=== PATIENT | male | born 1995 | race African-American/Black ===

== ENCOUNTER 2016-08-25 12:34 | Emergency (ER) | payer MEDICAID ==
[~2016-08-25] VITALS: Ht 175.3 cm; Wt 105.0 kg
[2016-08-25 13:45] VITALS: BP 136/83
[2016-08-25] MEDS ORDERED: IBUPROFEN 800MG TABLET PO ONE (13:45)
== END 2016-08-25 14:28 | disposition home or self-care (01) ==
LOC: ER 13:28
DX: S80.212A Abrasion, left knee, initial encounter (principal); Y08.89XA Assault by other specified means, initial encounter; Y93.89 Activity, other specified; Y92.89 Other specified places as the place of occurrence of the external cause; Y99.8 Other external cause status
CPT/HCPCS: 99283; L1830

== ENCOUNTER 2017-04-20 13:24 | Emergency (ER) | payer MEDICAID ==
[~2017-04-20] VITALS: Ht 175.3 cm; Wt 100.0 kg
[2017-04-20] MEDS ORDERED: FAMOTIDINE 20MG/2ML VIAL IV STA (18:10)
[2017-04-20 19:08] LABS: BASOPHILS % 0.7 % (0.0-2.0); CHLORIDE 107 mEq/L (98-107); EOSINOPHILS % 0.1 % (0.0-5.0); HEMATOCRIT. 40.4 % (42.0-52.0); HEMOGLOBIN. 13.1 g/dL (14.0-18.0); LYMPHOCYTES % 25.1 % (20.0-50.0); MEAN CORPUSCULAR HEMOGLOBIN 26.9 pg (28.0-32.0); MEAN CORPUSCULAR VOLUME 82.8 fL (80.0-94.0); MONOCYTES % 10.6 % (2.0-8.0); NEUTROPHILS % 63.5 % (40.0-76.0); PLATELET 230 x1000/uL (130-400); RED BLOOD CELL COUNT 4.88 mill/uL (4.7-6.1); RED CELL DISTRIBUTION WIDTH 13.9 % (11.6-14.6)
[2017-04-20 19:10] LABS: INR 1.1; PROTHROMBIN TIME 11.2 sec (9.4-11.6)
[2017-04-20] MEDS ORDERED: MAGNESIUM/ALUMINUM HYDROXIDE/SIMETHICONE 30ML UDC PO STA (19:22)
[2017-04-20] MEDS ORDERED: VISCOUS LIDOCAINE 2% 15 ML UDC PO STA (19:22)
[2017-04-20] MEDS ORDERED: DICYCLOMINE 10 MG/5 ML ORAL SYR PO STA (19:22)
[2017-04-20 21:28] VITALS: BP 127/80
== END 2017-04-20 21:30 | disposition home or self-care (01) ==
LOC: ER 14:52
DX: R10.13 Epigastric pain (principal); R11.10 Vomiting, unspecified; R19.5 Other fecal abnormalities
CPT/HCPCS: 36415; 80053; 83690; 85025; 85610; 99284; Z7610

== ENCOUNTER 2017-10-15 09:12 | Emergency (ER) | payer MEDICAID ==
[~2017-10-15] VITALS: Ht 175.3 cm; Wt 102.0 kg
[2017-10-15 09:30] VITALS: BP 130/70
== END 2017-10-15 12:41 | disposition left against medical advice (07) ==
LOC: ER 11:02
DX: Z53.21 Procedure and treatment not carried out due to patient leaving prior to being seen by health care provider (principal)

== ENCOUNTER 2023-04-16 17:56 | Emergency (ER) | payer SELFPAY ==
[~2023-04-16] VITALS: Ht 177.8 cm; Wt 5.0 kg
[2023-04-16 18:02] VITALS: BP 138/67; PULSE 86; RESP 16; TEMP 97.6; O2SAT 98
== END 2023-04-16 18:21 | disposition home or self-care (01) ==
LOC: ER 17:56
DX: F22 Delusional disorders (principal); F31.9 Bipolar disorder, unspecified; F20.9 Schizophrenia, unspecified
CPT/HCPCS: 99283